=== PATIENT | male | born 1990 | race Two or more races ===

== ENCOUNTER → 2024-12-22 | Outpatient (CLI) | payer OTHER ==
--- NOTE | 2024-12-22 09:50 | DVH ---
CLINICAL INDICATION: 34 years old, Male; PREVIOUS FRACTURE. TECHNIQUE: Noncontrast CT of the left knee was performed. Sagittal and coronal reformatted images are provided. COMPARISON: None CT Dose: CTDI volume is 7.75 mGy. Dose-length product is 281.69 mGy*cm FINDINGS: No fracture or dislocation. There is plate and screw fixation of a chronic appearing fracture throug h the lateral tibial plateau. There is widening of the lateral compartment joint space with tiny frac ture fragments noted in the joint space. Medial compartment and patellofemoral joint spaces are maint ained. Healed fracture of the fibular neck. Knee joint effusion. Mild soft tissue swelling of the an terior and the lateral knee. Vascular calcifications are noted. Edema in the anterior muscle compart ment. IMPRESSION: 1. Old postsurgical changes from fixation of lateral tibial plateau fracture. Healed fibular neck fr acture. No evidence of acute osseous abnormality. 2. Soft tissue swelling in the knee. All CT scans at this medical facility are performed using dose modulation techniques as appropriate t o a performed exam including the following: Automated exposure control was utilized; adjustment of th e MA and/or KV according to patient size; and use of iterative reconstruction technique.
== END | disposition home or self-care (01) ==
LOC: CT 08:21
DX: M25.462 Effusion, left knee (principal); M79.89 Other specified soft tissue disorders; I70.90 Unspecified atherosclerosis; R60.0 Localized edema; Z98.890 Other specified postprocedural states
CPT/HCPCS: 73700